=== PATIENT | female | born 1990 | race Caucasian/White ===

== ENCOUNTER 2017-11-03 11:56 | Emergency (ER) | payer MEDICAID ==
[2017-11-03] MEDS: IBUPROFEN 600 MG TAB PO (12:23)
[2017-11-03] MEDS: HYDROCODONE/APAP (5/325) TAB PO (12:24)
== END 2017-11-03 13:41 | disposition home or self-care (01) ==
LOC: FTE 11:56
DX: S92.351A Displaced fracture of fifth metatarsal bone, right foot, initial encounter for closed fracture (principal); W10.9XXA Fall (on) (from) unspecified stairs and steps, initial encounter; Y92.9 Unspecified place or not applicable; Z91.010 Allergy to peanuts
CPT/HCPCS: 29515; 73610-RT; 73630; 99283-25

== ENCOUNTER 2018-01-01 08:23 | Emergency (ER) | payer SELFPAY, MEDICAID ==
[2018-01-01] MEDS: SOD CHLORIDE 0.9% 1,000 ML IV (09:17)
[2018-01-01] MEDS: ONDANSETRON 4 MG INJ IV (09:17)
[2018-01-01] MEDS: KETOROLAC 30 MG INJ IV (09:17)
[2018-01-01] MEDS: CLINDAMYCIN 600 MG/D5W (PMX) 50 ML IVPB (09:24)
[2018-01-01 09:39] LABS: ADD MAN DIFF? NO
[2018-01-01 09:43] LABS: BASOPHILS % 0.3 % (0.0-2.0); EOSINOPHILS % 0.2 % (0.0-7.0); HEMATOCRIT 41.1 % (37.0-47.0); HEMOGLOBIN 13.7 g/dl (12.0-16.0); LYMPHOCYTES # 1.5 10^3/ul (0.8-2.9); MEAN CORPUSCULAR HEMOGLOBIN 29.9 pg (29.0-33.0); MEAN CORPUSCULAR HGB CONC 33.3 g/dl (32.0-37.0); MEAN CORPUSCULAR VOLUME 89.7 fl (82.0-101.0); MEAN PLATELET VOLUME 10.1 fl (7.4-10.4); MONOCYTE # 1.4 10^3/ul (0.3-0.9); MONOCYTES % 9.5 % (0.0-11.0); NEUTROPHIL # 11.8 10^3/ul (1.6-7.5); NEUTROPHILS % 79.4 % (39.0-77.0); PLATELET COUNT 340 10^3/UL (140-415); RED BLOOD COUNT 4.58 10^6/ul (4.20-5.40); RED CELL DISTRIBUTION WIDTH 12.1 % (11.5-14.5)
[2018-01-01 09:43] LABS: WHITE BLOOD COUNT 14.8 10^3/ul (4.8-10.8)
[2018-01-01 09:55] LABS: ADD UMIC YES; UR ASCORBIC ACID NEGATIVE (NEGATIVE); UR BACTERIA FEW /HPF (NONE SEEN); UR BILIRUBIN (Dip) NEGATIVE (NEGATIVE); UR BLOOD (Dip) NEGATIVE (NEGATIVE); UR CLARITY SLIGHTLY CLOUDY (CLEAR); UR COLOR YELLOW (YELLOW); UR GLUCOSE (Dip) NEGATIVE (NEGATIVE); UR KETONES (Dip) 2+ mg/dL (NEGATIVE); UR LEUKOCYTE ESTERASE (Dip) NEGATIVE Leu/ul (NEGATIVE); UR MUCUS FEW /HPF (NONE SEEN); UR NITRITE (Dip) NEGATIVE (NEGATIVE); UR RBC 1 /HPF (0-5); UR SPECIFIC GRAVITY (Dip) 1.025 (1.003-1.030); UR SQUAMOUS EPITHELIAL CELL FEW /HPF (FEW); UR TOTAL PROTEIN (Dip) 2+ mg/dl (NEGATIVE); UR UROBILINOGEN (Dip) NEGATIVE (NEGATIVE); UR WBC 4 /HPF (0-5)
[2018-01-01 10:05] LABS: ALANINE AMINOTRANSFERASE 44 IU/L (13-69); ALBUMIN 4.7 g/dl (3.3-4.9); ALBUMIN/GLOBULIN RATIO 1.02; ALKALINE PHOSPHATASE 100 IU/L (42-121); ANION GAP 20 (8-16); ASPARTATE AMINO TRANSFERASE 16 IU/L (15-46); BILIRUBIN,INDIRECT 0.5 mg/dl (0-1.1); BILIRUBIN,TOTAL 0.5 mg/dl (0.2-1.3); BLOOD UREA NITROGEN 9 mg/dl (7-20); CALCIUM 9.4 mg/dl (8.4-10.2); CARBON DIOXIDE 25 mmol/L (21-31); CHLORIDE 102 mmol/L (97-110); CREATININE 0.71 mg/dl (0.44-1.00); GLUCOSE 124 mg/dl (70-220); LIPASE 31 U/L (23-300); POTASSIUM 3.8 mmol/L (3.5-5.1); SODIUM 143 mmol/L (135-144); TOTAL PROTEIN 9.3 g/dl (6.1-8.1)
[2018-01-01 10:09] LABS: LACTIC ACID 1.4 mmol/L (0.5-2.0)
[2018-01-02] MEDS ORDERED: ONDANSETRON 4 MG INJ IV (03:15)
[2018-01-02] MEDS ORDERED: KETOROLAC 30 MG INJ IV (03:15)
[2018-01-02] MEDS ORDERED: morphine 10 MG INJ IV (03:30)
== END 2018-01-01 11:49 | disposition home or self-care (01) ==
LOC: FTE 08:23
DX: K04.7 Periapical abscess without sinus (principal); Z91.010 Allergy to peanuts
CPT/HCPCS: 36415; 80053; 81001; 81025; 83605; 83690; 84703; 85025; 87040; 96365; 96375; 99284-25

== ENCOUNTER 2018-01-02 02:39 | Emergency (ER) | payer MEDICAID ==
[2018-01-02] MEDS: CLINDAMYCIN 900 MG/D5W (PMX) 50 ML IVPB (03:45)
[2018-01-02] MEDS: SODIUM CHLORIDE 0.9% 1L BAG IV* (03:45)
[2018-01-02] MEDS: ONDANSETRON 4 MG INJ IV (03:46)
[2018-01-02] MEDS: KETOROLAC 30 MG INJ IV (03:46)
[2018-01-02] MEDS: morphine 10 MG INJ IV (03:46)
[2018-01-02 03:51] LABS: ADD MAN DIFF? NO
[2018-01-02 03:56] LABS: ADD UMIC YES; UR ASCORBIC ACID NEGATIVE (NEGATIVE); UR BACTERIA FEW /HPF (NONE SEEN); UR BILIRUBIN (Dip) NEGATIVE (NEGATIVE); UR BLOOD (Dip) NEGATIVE (NEGATIVE); UR CLARITY CLEAR (CLEAR); UR COLOR YELLOW (YELLOW); UR GLUCOSE (Dip) NEGATIVE (NEGATIVE); UR KETONES (Dip) 2+ mg/dL (NEGATIVE); UR LEUKOCYTE ESTERASE (Dip) NEGATIVE Leu/ul (NEGATIVE); UR MUCUS FEW /HPF (NONE SEEN); UR NITRITE (Dip) NEGATIVE (NEGATIVE); UR RBC 2 /HPF (0-5); UR SPECIFIC GRAVITY (Dip) 1.027 (1.003-1.030); UR SQUAMOUS EPITHELIAL CELL FEW /HPF (FEW); UR TOTAL PROTEIN (Dip) 2+ mg/dl (NEGATIVE); UR UROBILINOGEN (Dip) 1+ mg/dL (NEGATIVE); UR WBC 1 /HPF (0-5)
[2018-01-02 04:08] LABS: WHITE BLOOD COUNT 17.2 10^3/ul (4.8-10.8)
[2018-01-02 04:08] LABS: ABNORMAL IP MESSAGE 1; BASOPHIL # 0.1 10^3/ul (0.0-0.1); BASOPHILS % 0.4 % (0.0-2.0); EOSINOPHILS % 0.1 % (0.0-7.0); HEMATOCRIT 36.3 % (37.0-47.0); HEMOGLOBIN 11.8 g/dl (12.0-16.0); LYMPHOCYTES # 1.7 10^3/ul (0.8-2.9); LYMPHOCYTES % 9.6 % (15.0-51.0); MEAN CORPUSCULAR HEMOGLOBIN 29.5 pg (29.0-33.0); MEAN CORPUSCULAR HGB CONC 32.5 g/dl (32.0-37.0); MEAN CORPUSCULAR VOLUME 90.8 fl (82.0-101.0); MEAN PLATELET VOLUME 10.5 fl (7.4-10.4); MONOCYTE # 1.7 10^3/ul (0.3-0.9); MONOCYTES % 10.1 % (0.0-11.0); NEUTROPHIL # 13.6 10^3/ul (1.6-7.5); NEUTROPHILS % 79.1 % (39.0-77.0); PLATELET COUNT 321 10^3/UL (140-415); RED CELL DISTRIBUTION WIDTH 12.2 % (11.5-14.5)
[2018-01-02 04:10] LABS: POSITIVE DIFF @See below
[2018-01-02 04:12] LABS: LACTIC ACID 1.1 mmol/L (0.5-2.0)
[2018-01-02 04:13] LABS: ALANINE AMINOTRANSFERASE 36 IU/L (13-69); ALKALINE PHOSPHATASE 95 IU/L (42-121); ANION GAP 21 (8-16); ASPARTATE AMINO TRANSFERASE 20 IU/L (15-46); BILIRUBIN,INDIRECT 0.4 mg/dl (0-1.1); BILIRUBIN,TOTAL 0.4 mg/dl (0.2-1.3); BLOOD UREA NITROGEN 11 mg/dl (7-20); CALCIUM 8.7 mg/dl (8.4-10.2); CARBON DIOXIDE 19 mmol/L (21-31); CHLORIDE 105 mmol/L (97-110); CREATININE 0.73 mg/dl (0.44-1.00); GLUCOSE 96 mg/dl (70-220); POTASSIUM 3.9 mmol/L (3.5-5.1); SODIUM 141 mmol/L (135-144)
[2018-01-02 04:16] LABS: INR 1.24; PROTIME 15.8 Sec (11.9-14.9); PT RATIO 1.2
[2018-01-02 04:17] LABS: PARTIAL THROMBOPLASTIN TIME 40.7 Sec (25.0-35.0)
[2018-01-02 04:26] LABS: TROPONIN-I < 0.012 ng/ml (0.000-0.120)
[2018-01-02] MEDS: morphine 4 MG/ML VIAL IV (05:19)
== END 2018-01-02 05:43 | disposition home or self-care (01) ==
LOC: E/R 05:43
DX: K04.7 Periapical abscess without sinus (principal); A41.9 Sepsis, unspecified organism; R40.2142 Coma scale, eyes open, spontaneous, at arrival to emergency department; R40.2252 Coma scale, best verbal response, oriented, at arrival to emergency department; R40.2362 Coma scale, best motor response, obeys commands, at arrival to emergency department; R60.0 Localized edema; Z91.010 Allergy to peanuts
CPT/HCPCS: 36415; 71045; 80053; 81001; 81025; 83605; 84484; 85025; 85610; 85730; 87040; 93005; 96374; 96375; 96376; 99285-25

== ENCOUNTER 2018-10-12 10:46 | Emergency (ER) | payer MEDICAID ==
[2018-10-12] MEDS: KETOROLAC 60 MG INJ IM (13:09)
[2018-10-12 13:33] LABS: ADD UMIC NO; UR ASCORBIC ACID NEGATIVE (NEGATIVE); UR BILIRUBIN (Dip) NEGATIVE (NEGATIVE); UR BLOOD (Dip) NEGATIVE (NEGATIVE); UR CLARITY CLEAR (CLEAR); UR COLOR YELLOW (YELLOW); UR GLUCOSE (Dip) NEGATIVE (NEGATIVE); UR KETONES (Dip) NEGATIVE (NEGATIVE); UR LEUKOCYTE ESTERASE (Dip) NEGATIVE Leu/ul (NEGATIVE); UR NITRITE (Dip) NEGATIVE (NEGATIVE); UR TOTAL PROTEIN (Dip) NEGATIVE (NEGATIVE); UR UROBILINOGEN (Dip) NEGATIVE (NEGATIVE)
[2018-10-12] MEDS ORDERED: ACETAMINOPHEN 500 MG TAB PO (13:53)
[2018-10-12] MEDS ORDERED: KETOROLAC 60 MG INJ IM (13:53)
[2018-10-12] MEDS ORDERED: CYCLOBENZAPRINE 10 MG TAB PO (14:00)
== END 2018-10-12 15:30 | disposition home or self-care (01) ==
LOC: FTE 10:46
DX: R10.2 Pelvic and perineal pain (principal)
CPT/HCPCS: 74019; 76856; 81003; 81025; 96372; 99285-25